=== PATIENT | female | born 2000 | race Hispanic/Latino ===

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

== ENCOUNTER → 2021-04-05 | Outpatient (CLI) | payer OTHER ==
[~2021-04-05] MED LIST: ABILIFY5 MG PO; DEXMETHYLPHENIDA5 MG PO; HYDROXYZINE HCL10 MG PO; OMEPRAZOLE40 MG PO; TRILOSPRINTEC PO
== END ==
LOC: US 09:51
PROVIDERS: ATTEND Internal Medicine Gastroenterology
DX: R10.33 Periumbilical pain (principal)
CPT/HCPCS: 76700

== ENCOUNTER → 2021-04-23 | Day surgery (SDC) | payer OTHER ==
[~2021-04-23] MED LIST changes: +PROPOFOL IV EMULSION 10 MG/ML 20 ML VIAL ONE
[2021-04-23 09:05] VITALS: BP 105/72
== END | disposition home or self-care (01) ==
LOC: OR 07:07
PROVIDERS: ATTEND Internal Medicine Gastroenterology
DX: K20.90 Esophagitis, unspecified without bleeding (principal); K29.70 Gastritis, unspecified, without bleeding; K44.9 Diaphragmatic hernia without obstruction or gangrene; R19.7 Diarrhea, unspecified; R11.2 Nausea with vomiting, unspecified; R12 Heartburn; Z01.812 Encounter for preprocedural laboratory examination; Z20.822 Contact with and (suspected) exposure to COVID-19; Z88.6 Allergy status to analgesic agent
CPT/HCPCS: 43239; 81025; C9113; J2704; U0002 ×2